=== PATIENT | male | born 1945 | race Caucasian/White ===

== ENCOUNTER 2023-11-10 08:45 | Day surgery (SDC) | payer MEDICARE ==
[2023-11-10] MEDS: Lactated Ringers 1,000 ML IV SCH (09:22)
[2023-11-10] MEDS ORDERED: propofoL 50 ML ONE (10:04)
[2023-11-10] MEDS ORDERED: Propofol 200 MG/20 ML SDV ONE ×2 (10:05→10:13)
[2023-11-10] MEDS ORDERED: Phenylephrine HCl In 0.9% NaCl 1 MG/10 ML Syringe ONE (10:09)
[2023-11-10 11:58] VITALS: BP 106/61; PULSE 58
== END 2023-11-10 11:43 | disposition home or self-care (01) ==
LOC: MW.SDS 08:45
PROVIDERS: ATTEND Surgery
DX: D12.0 Benign neoplasm of cecum (principal); D12.2 Benign neoplasm of ascending colon; D12.3 Benign neoplasm of transverse colon; K63.5 Polyp of colon; K20.90 Esophagitis, unspecified without bleeding; K29.50 Unspecified chronic gastritis without bleeding; K29.80 Duodenitis without bleeding; K57.30 Diverticulosis of large intestine without perforation or abscess without bleeding; J45.909 Unspecified asthma, uncomplicated; I10 Essential (primary) hypertension; J44.9 Chronic obstructive pulmonary disease, unspecified; E11.9 Type 2 diabetes mellitus without complications; R63.4 Abnormal weight loss; Z87.891 Personal history of nicotine dependence; Z79.84 Long term (current) use of oral hypoglycemic drugs; Z79.899 Other long term (current) drug therapy; Z86.010 Personal history of colon polyps
CPT/HCPCS: 43239; 45380; 45385; 82947; 88305; J2371; J2704; J7120; 00813; 99100